=== PATIENT | female | born 1990 ===

== ENCOUNTER 2017-12-30 05:38 | Emergency (ER) | payer OTHER ==
[2017-12-30 05:54] VITALS: BMI 22.3
[2017-12-30] MEDS ORDERED: Sodium Chloride 0.9% 1,000 ML IV STA (06:16)
--- NOTE | 2017-12-30 06:20 | ED PDOC ---
HPI: Headache Time Seen by Provider: 12/30/17 05:44 Chief Complaint (Nursing): Headache Chief Complaint (Provider): Headache History Per: Patient History/Exam Limitations: no limitations Onset/Duration Of Symptoms: Days (x1) Current Symptoms Are (Timing): Still Present Associated Symptoms: Nausea. denies: Photophobia, Blurred Vision, Vomiting Additional Complaint(s): 27 year old female presents to the ED complaining of worsened right sided headache since yesterday. Patient reports she was doing laundry and had put her hair in a bun when she began to feel her head hurt. Pain began to worsen throughout the day with no sudden onset causing patient to be unable to sleep. She is also complaining of nausea, runny nose, and chills. Patient indicates runny nose and cough began in the beginning of November which she attributed to allergies. She states her cough improved but has cough attacks once in a while. She took 2 tablets of advil at around 05:00. Denies vision changes, exertion, and light sensitivity. PMD: Pavan Coppola Past Medical History Reviewed: Historical Data, Nursing Documentation, Vital Signs Vital Signs: Last Vital Signs Temp 97.9 F 12/30/17 05:54 Pulse 85 12/30/17 05:54 Resp 16 12/30/17 05:54 BP 119/61 12/30/17 05:54 Pulse Ox 97 12/30/17 05:54 - Medical History PMH: No Chronic Diseases - Surgical History Surgical History: No Surg Hx - Family History Family History: States: Unknown Family Hx - Social History Current smoker - smoking cessation education provided: No Ex-Smoker (has not smoked in the last 12 months): No Alcohol: None - Home Medications Home Medications: Ambulatory Orders Medication Instructions Recorded Azithromycin [Zithromax] 250 mg PO DAILY #6 tab 12/30/17 Naproxen [Naprosyn] 500 mg PO Q12H #20 tab 12/30/17 - Allergies Allergies/Adverse Reactions: Allergies Allergy/AdvReac Type Severity Reaction Status Date / Time No Known Allergies Allergy Verified 12/30/17 05:53 Review of Systems ROS Statement: Except As Marked, All Systems Reviewed And Found Negative Constitutional: Positive for: Chills Eyes: Negative for: Vision Change ENT: Positive for: Other (Runny nose) Respiratory: Positive for: Cough Gastrointestinal: Positive for: Nausea. Negative for: Vomiting, Abdominal Pain , Diarrhea Neurological: Positive for: Headache Physical Exam - Reviewed Nursing Documentation Reviewed: Yes Vital Signs Reviewed: Yes - Physical Exam Appears: Positive for: Non-toxic, No Acute Distress Head Exam: Positive for: ATRAUMATIC, NORMOCEPHALIC Skin: Positive for: Normal Color, Warm, Dry Eye Exam: Positive for: Normal appearance ENT: Positive for: Normal ENT Inspection Neck: Positive for: Normal, Painless ROM Cardiovascular/Chest: Positive for: Regular Rate, Rhythm. Negative for: Murmur Respiratory: Positive for: Normal Breath Sounds. Negative for: Respiratory Distress Pulses-Radial (L): 2+ Pulses-Radial (R): 2+ Gastrointestinal/Abdominal: Positive for: Normal Exam, Soft. Negative for: Tenderness Extremity: Positive for: Normal ROM Neurologic/Psych: Positive for: Alert, Oriented. Negative for: Motor/Sensory Deficits - Laboratory Results Result Diagrams: 12/30/17 07:09 12/30/17 07:09 - ECG O2 Sat by Pulse Oximetry: 97 (RA) Pulse Ox Interpretation: Normal Medical Decision Making Medical Decision Making: Initial Impression: Headache associated with nausea and chills Initial Plan: Head CT BMP ED urine ED urine dipstick CBC Sodium chloride 1000mL IV Reglan 10mg IV Toradol 15mg IV Scribe Attestation: Documented by Eliceo Posey acting as a scribe for Eze Tobar MD. Provider Scribe Attestation: All medical record entries made by the Scribe were at my direction and personally dictated by me. I have reviewed the chart and agree that the record accurately reflects my personal performance of the history, physical exam, medical decision making, and the department course for this patient. I have also personally directed, reviewed, and agree with the discharge instructions and disposition. Disposition - Clinical Impression Clinical Impression: Headache, Bronchitis - Patient ED Disposition Is Patient to be Admitted: Transfer of Care Doctor Will See Patient In The: Office Counseled Patient/Family Regarding: Studies Performed, Diagnosis, Need For Followup - Disposition Referrals: Pavan Upton MD [Primary Care Provider] - Disposition: Transfer of Care Disposition Time: 07:00 Condition: STABLE Prescriptions: Azithromycin [Zithromax] 250 mg PO DAILY #6 tab Naproxen [Naprosyn] 500 mg PO Q12H #20 tab Instructions: Headache, Adult, Acute Bronchitis
[2017-12-30 07:12] LABS: BASO % 0.4 % (0.0-2.0); EOS # 0.4 K/uL (0.0-0.7); EOS % 7.2 % (0.0-4.0); LYMPH # 1.6 K/uL (1.0-4.3); LYMPH % 32.3 % (20.0-40.0); MEAN CELL VOLUME 82.7 fl (81.0-99.0); MEAN CORPUSCULAR HEMOGLOBIN 26.6 pg (27.0-31.0); MEAN CORPUSCULAR HGB CONC 32.2 g/dL (33.0-37.0); MONO # 0.5 K/uL (0.0-0.8); MONO % 9.5 % (0.0-10.0); NEUT # 2.5 K/uL (1.8-7.0); NEUT % 50.6 % (50.0-75.0); RBC 4.15 Mil/uL (3.80-5.20); RED CELL DISTRIBUTION WIDTH 15.8 % (11.5-14.5)
[2017-12-30 07:24] LABS: BLOOD UREA NITROGEN 14 mg/dl (7-17); CALCIUM 9.2 mg/dL (8.4-10.2); GFR NON-AFRICAN AMERICAN > 60
[2017-12-30 07:29] VITALS: BP 114/68; PULSE 82; RESP 18; TEMP 98.4
--- NOTE | 2017-12-30 07:50 | RAD ---
Date of service: 12/30/2017 HISTORY: cough COMPARISON: No prior. FINDINGS: LUNGS: No active pulmonary disease. PLEURA: No significant pleural effusion identified, no pneumothorax apparent. CARDIOVASCULAR: Normal. OSSEOUS STRUCTURES: No significant abnormalities. VISUALIZED UPPER ABDOMEN: Normal. OTHER FINDINGS: None. IMPRESSION: No acute cardiopulmonary disease appreciated.
--- NOTE | 2017-12-30 08:08 | ED PDOC ---
- Laboratory Results Result Diagrams: 12/30/17 07:09 12/30/17 07:09 - ECG O2 Sat by Pulse Oximetry: 98 Disposition - Clinical Impression Clinical Impression: Headache, Bronchitis - POA Present On Arrival: None - Disposition Referrals: Pavan Upton MD [Primary Care Provider] - Disposition: Routine/Home Disposition Time: 08:07 Condition: FAIR Prescriptions: Azithromycin [Zithromax] 250 mg PO DAILY #6 tab Naproxen [Naprosyn] 500 mg PO Q12H #20 tab Instructions: Acute Bronchitis, Headache, Adult Forms: [facility] (Nauruan)
--- NOTE | 2017-12-30 10:46 | CT ---
Date of service: 12/30/2017 PROCEDURE: CT HEAD WITHOUT CONTRAST. HISTORY: headache COMPARISON: None available. TECHNIQUE: Axial computed tomography images were obtained through the head/brain without intravenous contrast. Radiation dose: Total exam DLP = 772.99 mGy-cm. This CT exam was performed using one or more of the following dose reduction techniques: Automated exposure control, adjustment of the mA and/or kV according to patient size, and/or use of iterative reconstruction technique. FINDINGS: HEMORRHAGE: No intracranial hemorrhage. BRAIN: Normal shea-white matter differentiation and density are appreciated throughout the cerebrum and cerebellum with the brainstem appearing unremarkable as well. There is no mass effect. There is no suspicious extra-axial fluid collection and the midline brain anatomy appears diffusely unremarkable. VENTRICLES: Unremarkable. No hydrocephalus. CALVARIUM: Unremarkable. PARANASAL SINUSES: Trace posterior right ethmoid sinusitis. MASTOID AIR CELLS: Unremarkable as visualized. No inflammatory changes. OTHER FINDINGS: None. IMPRESSION: Unremarkable CT of the Head. Concordant preliminary report from [facility], 12/30/2017.
[2018-01-03 15:19] VITALS: O2SAT 97
== END 2017-12-30 08:20 | disposition home or self-care (01) ==
LOC: H.ER 05:38
DX: R51 Headache (principal); J40 Bronchitis, not specified as acute or chronic; Z87.891 Personal history of nicotine dependence
CPT/HCPCS: 70450; 71045; 80048; 81025; 85025; 96374; 96375; 99285; J1885; J2765; J7030